=== PATIENT | male | born 1975 | race Caucasian/White ===

== ENCOUNTER 2016-10-27 16:28 | Inpatient (IN) | payer BC ==
[2016-10-27] MEDS ORDERED: SODIUM CHLORIDE 1,000 ML IV ONE (17:22)
--- NOTE | 2016-10-27 17:31 | PDOC ---
History of Present Illness - General History Source: Patient Exam Limitations: No Limitations - History of Present Illness Initial Comments: 10/27/16 17:55 Patient is a 40 year old male with no significant pain who presents to the ED sent from Dr. Tillman's office with RLQ abdominal pain and fever. Patient states that the RLQ pain is only present with movements and pressure over the area. He states when he is still there is no pain. Patient states that he initially developed mild RLQ pain on Sunday. He notes that on Sunday he woke up with fever and nasal congestion nad uri like symtoms. He was seen at an urgent care on sunday had blood work and a renal US that did not visualize hydronephrosis or stones, and was given Cipro for UTI due to some hematuria. Patient states that on Sunday he developed a cough in addition to the other symptoms. Patient saw Dr. Tillman today that has concerns for appendicitis and requested a CT for the patient. He reports intermittent mild nausea. Denies any pain unless people are poking him. He denies any vomiting, diarrhea or constipation. He denies any SOB or cp. He denies dysuria, hematuria, frequency or urgency. <Carley Allen - Last Filed: 10/27/16 17:55> <Rakesh Seaman - Last Filed: 10/28/16 19:28> - General Chief Complaint: Pain, Acute Stated Complaint: SIDE PAIN Time Seen by Provider: 10/27/16 17:19 Past History <Carley Allen - Last Filed: 10/27/16 17:55> - Past Medical History Other medical history: PATIENT DENIES MEDICAL PROBLEMS - Psycho/Social/Smoking Cessation Hx Suicidal Ideation: No Smoking History: Never smoked Hx Alcohol Use: Yes (OCCASIONALLY) Drug/Substance Use Hx: No <Rakesh Seaman - Last Filed: 10/28/16 19:28> - Past Medical History Allergies/Adverse Reactions: Allergies Allergy/AdvReac Type Severity Reaction Status Date / Time No Known Allergies Allergy Verified 10/27/16 16:33 Home Medications: Ambulatory Orders NK [No Known Home Medication] 10/27/16 Review of Systems - Review of Systems Able to Perform ROS?: Yes Comments:: 10/27/16 17:56 CONSTITUTIONAL: No reported: Fever, Chills, Diaphoresis, Generalized Weakness, Malaise, Loss of Appetite HEENT: No reported: Rhinorrhea, Nasal Congestion, Throat Pain, Throat Swelling, Difficulty Swallowing, Mouth Swelling, Ear Pain, Eye Pain, Visual Changes CARDIOVASCULAR: No reported: Chest Pain, Syncope, Palpitations, Irregular Heart Rate, Lightheadedness, Peripheral Edema RESPIRATORY: No reported: Cough, Shortness of Breath, SOB with Exertion, Orthopnea, Wheezing , Stridor, Hemoptysis GASTROINTESTINAL: Reported: RLQ abdominal pain, nausea. No reported: Abdominal Distension, Vomiting, Diarrhea, Constipation, Melena, Hematochezia GENITOURINARY: No reported: Dysuria, Frequency, Urgency, Hesitancy, Flank Pain, Genital Pain MUSCULOSKELETAL: No reported: Myalgia, Arthralgia, Joint Swelling, Back pain, Neck Pain SKIN: No reported: Rash, Itching, Pallor HEMEATOLOGIC/IMMUNOLOGIC: No reported: Easy Bleeding, Easy Bruising, Lymphadenopathy, Frequent infections ENDOCRINE: No reported: Unexplained Weight Gain, Unexplained Weight Loss, Heat Intolerance , Cold Intolerance NEUROLOGIC: No reported: Headache, Focal Weakness, Paresthesias, Vertigo, Lightheadedness, Unsteady Gait, Seizure, Mental Status Changes, Incontinence PSYCHIATRIC: No reported: Anxiety, Depression <Carley Allen - Last Filed: 10/27/16 17:55> *Physical Exam - Vital Signs Last Vital Signs Temp Pulse Resp BP Pulse Ox 98.0 F 120 H 18 124/88 96 10/27/16 16:31 10/27/16 16:31 10/27/16 16:31 10/27/16 16:31 10/27/16 16:31 - Physical Exam Comments: 10/27/16 17:56 GENERAL: The patient is awake, alert, and fully oriented, Nontoxic - in no acute distress. HEAD: Normocephalic, atraumatic. EYES: extraocular movements intact, sclera anicteric, conjunctiva clear. ENT: Normal voice, Moist mucous membranes. NECK: Normal range of motion, supple LUNGS: Breath sounds equal, clear to auscultation bilaterally. No wheezes, no rhonchi, no rales. HEART: Regular rate and rhythm, without murmur, rub or gallop. ABDOMEN: (+)RLQ tenderness. (+)volutnary guarding. Soft, normoactive bowel sounds. no rebound. No CVA tenderness EXTREMITIES: Normal range of motion, no edema. No clubbing or cyanosis. No cords , erythema, or tenderness. NEUROLOGICAL: No facial assymetry, Normal speech, PSYCH: Normal mood, normal affect. SKIN: Warm, Dry, normal turgor <Carley Allen - Last Filed: 10/27/16 17:55> - Vital Signs Last Vital Signs Temp Pulse Resp BP Pulse Ox 98.0 F 120 H 18 124/88 96 10/27/16 16:31 10/27/16 16:31 10/27/16 16:31 10/27/16 16:31 10/27/16 16:31 <Rakesh Seaman - Last Filed: 10/28/16 19:28> Heart Score/ECG Review - ECG Impressions Comment:: 10/27/16 23:08 Twelve-lead EKG was performed and reviewed by me. There is normal sinus rhythm with a normal rate. Rate of 85 The axis is normal. The intervals are normal. There is normal R wave progression There are no ST or T wave abnormalities. <Rakesh Seaman - Last Filed: 10/28/16 19:28> ED Treatment Course - LABORATORY CBC & Chemistry Diagram: 10/28/16 07:45 10/28/16 07:45 <Rakesh Seaman - Last Filed: 10/28/16 19:28> Medical Decision Making - Medical Decision Making 10/27/16 17:35 40y M with no pmhx presents with complaint of RLQ pain, sent by PMD for evalution. pain x 5 days w/o associated n/v, but has been having fevers as wellas URI sypmtoms. on exam pt is well appearing but vitals noted for HR of 120. pt also has exquisite RLQ tenderness suspect possible appendicitis will give fluids for fluid resusitation will obtain CT abdomen will reasses A portion of this note was documented by scribe services under my direction. I have reviewed the details of the note, within reason, and agree with the documentation with the following case summary and management plan written by me 10/27/16 20:[address] noted for acute appendicitis with an abscess pt written for abx will admi tto the hospitalist service (covering for Dr. Ha) will admit for further management will notify surgery. <Rakesh Seaman - Last Filed: 10/28/16 19:28> *DC/Admit/Observation/Transfer - Attestations Scribe Attestion: 10/27/16 17:56 Documentation prepared by RAJINDER Mccall, acting as medical scheduler for Rakesh Seaman MD. <Carley Allen - Last Filed: 10/27/16 17:55> - Discharge Dispostion Admit: Yes <Rakesh Seaman - Last Filed: 10/28/16 19:28> Diagnosis at time of Disposition: Acute appendicitis with appendiceal abscess - Referrals
[2016-10-27 18:40] LABS: BASOPHIL 0.3 % (0-2.0); EOSINOPHIL 1.6 % (0-4.5); MCH 29.2 pg (25.7-33.7); MCHC 32.4 g/dl (32.0-35.9); MEAN CELL VOLUME 90.2 fl (80-96); MEAN PLT VOLUME 9.8 fl (7.5-11.1); NEUTROPHILS 76.9 % (42.8-82.8); PLATELET COUNT 304 K/MM3 (134-434); RDW 12.8 % (11.9-15.9); WHITE BLOOD COUNT 14.2 K/mm3 (4.0-10.0)
[2016-10-27 18:48] LABS: URINE APPEARANCE CLEAR; URINE BILIRUBIN NEGATIVE (NEGATIVE); URINE BLOOD 1+ (NEGATIVE); URINE COLOR DK YELLOW; URINE GLUCOSE (UA) NEGATIVE (NEGATIVE); URINE KETONE TRACE (NEGATIVE); URINE LEUK ESTERASE NEGATIVE (NEGATIVE); URINE NITRITE NEGATIVE (NEGATIVE); URINE PROTEIN 1+ (NEGATIVE); URINE UROBILINOGEN NEGATIVE E.U./dl (0.2-1.0)
[2016-10-27 18:51] LABS: URINE MUCUS MANY; URINE RBC 7 /hpf (0-3); URINE WBC 1 /hpf (3-5)
[2016-10-27 18:52] LABS: INR 1.27 (0.82-1.09)
[2016-10-27 19:02] LABS: ANION GAP 8 (8-16); CALCIUM 9.5 mg/dL (8.5-10.1); CO2 29 mmol/L (21-32); COCKROFT - GAULT 87.62; CREATININE 1.1 mg/dL (0.7-1.3); GLUCOSE,RANDOM 85 mg/dL (74-106); SGOT/AST 176 U/L (15-37); TOT PROT 8.2 g/dl (6.4-8.2)
[2016-10-27 19:16] LABS: ALK PHOS 155 U/L (45-117); BILIRUBIN,TOTAL 0.9 mg/dL (0.2-1.0); SGPT/ALT 390 U/L (12-78)
[2016-10-27] MEDS ORDERED: ACETAMINOPHEN 1000 MG/100 ML VIAL (NON FORMULARY) IVPB ONE (20:02)
[2016-10-27] MEDS ORDERED: ACETAMINOPHEN INJECTION 100 ML IVPB ONE (20:08)
[2016-10-27] MEDS ORDERED: METRONIDAZOLE 500 MG PREMIXED 100 ML IVPB ONE ×2 (20:32→20:37)
[2016-10-27] MEDS ORDERED: LEVOFLOXACIN 750 MG IVPB 150 ML IVPB ONE ×2 (20:32→20:37)
--- NOTE | 2016-10-27 22:05 | PN ---
<Gaby Estes - Last Filed: 10/27/16 21:55> Teaching Attending Note Name of Resident: Jodi Gilmore ATTENDING PHYSICIAN STATEMENT ASSESSMENT AND PLAN: RLQ Abdominal pain, Acute appendicitis NPO IVF NS @150cc/h Morphine 2mg q6h prn zofran prn Surgery consult called by ED Elevated LFTs r/o hepatitis Hepatitis panel <Doretha Esquivel - Last Filed: 10/27/16 22:35> Teaching Attending Note ATTENDING PHYSICIAN STATEMENT I saw and evaluated the patient. I reviewed the resident's note and discussed the case with the resident. I agree with the resident's findings and plan as documented. SUBJECTIVE: 40 yo M presents from Dr. Pacheco office with RLQ pain and fever for 6 days. Patient reports his RLQ is tender to palpation. He was seen at an urgent care on sunday had blood work and a renal US that did not visualize hydronephrosis or stones, and was given Cipro for UTI due to some possible hematuria. Patient notes he developed an associated cough 4 days ago. Patient reports Dr. Puga sent him here for CT scan today as for concerns of appendicitis. Patient reports his fever was 100.9 degrees. Patient denies N/V/ D. PMHx: Denies PSHx: Denies Social Hx: occassional ETOH Family Hx: Mother had colon cancer at 60 yo. OBJECTIVE: Last Vital Signs Temp Pulse Resp BP Pulse Ox 100.3 F H 96 H 17 128/80 96 10/27/16 19:48 10/27/16 19:48 10/27/16 19:48 10/27/16 19:48 10/27/16 16:31 GENERAL: Awake, alert, and fully oriented, in no acute distress HEENT: Atraumatic. PERRLA, EOMI. Moist mucosa. No JVD LUNGS: No distress, speaks full sentences, clear to auscultation bilaterally HEART: Regular rate and rhythm, normal S1 and S2, no murmurs, rubs or gallops, peripheral pulses normal and equal bilaterally. ABDOMEN: Soft, RLQ tenderness, normoactive bowel sounds. No guarding, no rebound. No masses EXTREMITIES: Normal inspection, Normal range of motion, no edema. No clubbing or Cyanosis. NEUROLOGICAL: Cranial nerves II through XII grossly intact. Normal speech, gait not assessed, no focal sensorimotor deficits SKIN: Warm, Dry, normal turgor, no rashes or lesions noted. CBCD WBC 14.2 K/mm3 (4.0-10.0) H 10/27/16 18:00 RBC 5.09 M/mm3 (4.00-5.60) 10/27/16 18:00 Hgb 14.9 GM/dL (11.7-16.9) 10/27/16 18:00 Hct 46.0 % (35.4-49) 10/27/16 18:00 MCV 90.2 fl (80-96) 10/27/16 18:00 MCHC 32.4 g/dl (32.0-35.9) 10/27/16 18:00 RDW 12.8 % (11.9-15.9) 10/27/16 18:00 Plt Count 304 K/MM3 (134-434) 10/27/16 18:00 MPV 9.8 fl (7.5-11.1) 10/27/16 18:00 CMP Sodium 137 mmol/L (136-145) 10/27/16 18:00 Potassium 4.1 mmol/L (3.5-5.1) 10/27/16 18:00 Chloride 100 mmol/L (98-107) 10/27/16 18:00 Carbon Dioxide 29 mmol/L (21-32) 10/27/16 18:00 Anion Gap 8 (8-16) 10/27/16 18:00 BUN 9 mg/dL (7-18) 10/27/16 18:00 Creatinine 1.1 mg/dL (0.7-1.3) 10/27/16 18:00 Creat Clearance w eGFR > 60 (>60) 10/27/16 18:00 Calcium 9.5 mg/dL (8.5-10.1) 10/27/16 18:00 Total Bilirubin 0.9 mg/dL (0.2-1.0) 10/27/16 18:00 AST 176 U/L (15-37) H 10/27/16 18:00 ALT 390 U/L (12-78) H 10/27/16 18:00 Alkaline Phosphatase 155 U/L (45-117) H 10/27/16 18:00 Total Protein 8.2 g/dl (6.4-8.2) 10/27/16 18:00 Albumin 4.0 g/dl (3.4-5.0) 10/27/16 18:00 ASSESSMENT AND PLAN: 1.) Acute appendicitis -NPO -IVF -Levaquin -Flagyl -Hepatitis panel -Surgical consult Documentation is prepared by Doretha Esquivel acting as medical logistics specialist for Gaby Estes M.D.
[2016-10-27] MEDS: SODIUM CHLORIDE 1,000 ML IV SCH (22:24)
[2016-10-27] MEDS ORDERED: morphine CARPU-JECT 2 MG/1 ML DISP.SYRIN IVPUSH PRN (22:49)
--- NOTE | 2016-10-27 22:51 | HP ---
CHIEF COMPLAINT: RLQ Pain PCP: Dr. Tillman's HISTORY OF PRESENT ILLNESS: 32 year old male with no significant past medical history, presents to the emergency room complaining of RLQ pain for on week. Patient was starting to feel ill last Sunday at home, with sharp, non radiating RLQ pain. This was accompanied with low grade fever. Patient denies chills, n. v,changes in bowel or bladder habits. Denies any aggregating or alleviating factors. Patient then went to Urgent care to get evaluated. He states urine analysis was positive blood, so a kidney ultrasound was done to rule out stones, which was negative for acute pathology. Patient then went to his primary care for which he was sent here for suspected appendicitis. Routine lab work was a slo evident for elevated liver enzymes. Patient claims he had a liver biopsy in the past that was negative. Denies hepatitis, use of needles. He states he drinks 3 glasses of wine about three times per week. ER course was notable for: (1)wbc count 14; (2)elevated liver enzymes (3)abdomen CT acute appendicitis Recent Travel: no PAST MEDICAL HISTORY: none PAST SURGICAL HISTORY: none Social History: Smoking:no Alcohol:3 glasses of wine 3x per week Drugs: no Family History: Allergies No Known Allergies Allergy (Verified 10/27/16 16:33) HOME MEDICATIONS: Home Medications Medication Instructions Recorded NK [No Known Home Medication] 10/27/16 REVIEW OF SYSTEMS CONSTITUTIONAL: Positive: fever Absent: chills, diaphoresis, generalized weakness, malaise, loss of appetite, weight change HEENT: Absent: rhinorrhea, nasal congestion, throat pain, throat swelling, difficulty swallowing, mouth swelling, ear pain, eye pain, visual changes CARDIOVASCULAR: Absent: chest pain, syncope, palpitations, irregular heart rate, lightheadedness , peripheral edema RESPIRATORY: Absent: cough, shortness of breath, dyspnea with exertion, orthopnea, wheezing, stridor, hemoptysis GASTROINTESTINAL: Positive: abdominal pain, RLQ Absent: abdominal distension, nausea, vomiting, diarrhea, constipation, melena , hematochezia GENITOURINARY: Absent: dysuria, frequency, urgency, hesitancy, hematuria, flank pain, genital pain MUSCULOSKELETAL: Absent: myalgia, arthralgia, joint swelling, back pain, neck pain SKIN: Absent: rash, itching, pallor HEMATOLOGIC/IMMUNOLOGIC: Absent: easy bleeding, easy bruising, lymphadenopathy, frequent infections ENDOCRINE: Absent: unexplained weight gain, unexplained weight loss, heat intolerance, cold intolerance NEUROLOGIC: Absent: headache, focal weakness or paresthesias, dizziness, unsteady gait, seizure, mental status changes, bladder or bowel incontinence PSYCHIATRIC: Absent: anxiety, depression, suicidal or homicidal ideation, hallucinations. PHYSICAL EXAMINATION Vital Signs - 24 hr 10/27/16 10/27/16 10/27/16 16:31 19:48 22:33 Temperature 98.0 F 100.3 F H 99 F Pulse Rate 120 H Pulse Rate [ 96 H 80 Radial] Respiratory 18 17 Rate Blood Pressure 124/88 Blood Pressure 128/80 118/72 [Arm] O2 Sat by Pulse 96 97 Oximetry (%) GENERAL: Awake, alert, and fully oriented, in no acute distress. HEAD: Normal with no signs of trauma. EYES: Pupils equal, round and reactive to light, extraocular movements intact, sclera anicteric, conjunctiva clear. No lid lag. EARS, NOSE, THROAT: Ears normal, nares patent, oropharynx clear without exudates. Moist mucous membranes. NECK: Normal range of motion, supple without lymphadenopathy, JVD, or masses. LUNGS: Breath sounds equal, clear to auscultation bilaterally. No wheezes, and no crackles. No accessory muscle use. HEART: Regular rate and rhythm, normal S1 and S2 without murmur, rub or gallop. ABDOMEN: Soft,RLQ tenderness, not distended, normoactive bowel sounds, no guarding, no rebound, no masses. No hepatomegaly or splenomegaly. MUSCULOSKELETAL: Normal range of motion at all joints. No bony deformities or tenderness. No CVA tenderness. UPPER EXTREMITIES: 2+ pulses, warm, well-perfused. No cyanosis. No clubbing. No peripheral edema. LOWER EXTREMITIES: 2+ pulses, warm, well-perfused. No calf tenderness. No peripheral edema. NEUROLOGICAL: Cranial nerves II-XII intact. Normal speech. Normal gait. PSYCHIATRIC: Cooperative. Good eye contact. Appropriate mood and affect. SKIN: Warm, dry, normal turgor, no rashes or lesions noted, normal capillary refill. CBC, BMP 10/27/16 18:00 10/27/16 18:[address]: Acute appendicitis is identified with a probable 1.3 x 0.5 cm periappendiceal abscess. Periappendiceal edema and fluid is also noted. A small calcified intraluminal appendicolith is visualized. A small amount of free intraperitoneal fluid is seen within the rectovesical space. ASSESSMENT/PLAN: 40 year old male with out PMHX presents to ER with RLQ pain admitted for acute appendicitis #acute appendicitis with abscess: -NPO, IVF, pain control with morphine 2mg IVP q6h prn -flagyl 500mg IVPB q6h; levaquin IV 500mg qd -surgery consult #transaminitis -patient does drink although AST not greater than ALT; non IVDA; -get hapatitis A, B, C -gather old records from primary regarding previous work up/previous liver biopsy -trend ALT/AST -liver US #hematuria -RBC + on UA -recent renal US negative for acute pathology FEN: Fluids: 125ml/hr NS Electrolytes: wnl Diet: NPO VTE prophylaxis: ambulates; eval for surgery Disposition: admitted to med surg; surgery eval Problem List - Problem (1) Acute appendicitis with appendiceal abscess Code(s): K35.3 - ACUTE APPENDICITIS WITH LOCALIZED PERITONITIS (2) Transaminitis Code(s): R74.0 - NONSPEC ELEV OF LEVELS OF TRANSAMNS & LACTIC ACID DEHYDRGNSE (3) Hematuria Code(s): R31.9 - HEMATURIA, UNSPECIFIED Visit type - Emergency Visit Emergency Visit: Yes ED Registration Date: 10/27/16 Care time: The patient presented to the Emergency Department on the above date and was hospitalized for further evaluation of their emergent condition. - New Patient This patient is new to me today: Yes Date on this admission: 10/28/16 - Critical Care Critical Care patient: No
--- NOTE | 2016-10-27 23:37 | CONSULT ---
Consult Consult Specialty:: General Surgery Reason for Consultation:: Abdominal pain, acute appendicitis with abscess. - History of Present Illness Chief Complaint: Abdominal pain for 5 days, exacerbated today. History of Present Illness: C/O pain in right lower quadrant of abdomen for the past 5 days, has been on antibiotic with no relief. - History Source History Provided By: Patient Limitations to Obtaining History: No Limitations - Past Medical History Gastrointestinal: Yes: Other (He is known to have elevated liver enzymes and is followed by for the past 3-4 years.) Hepatobiliary: Yes: Other (Elevated liver enzymes for 3-4 years.) - Alcohol/Substance Use Hx Alcohol Use: Yes (OCCASIONALLY) - Smoking History Smoking history: Never smoked Home Medications - Allergies Allergies/Adverse Reactions: Allergies Allergy/AdvReac Type Severity Reaction Status Date / Time No Known Allergies Allergy Verified 10/27/16 16:33 - Home Medications Home Medications: Ambulatory Orders NK [No Known Home Medication] 10/27/16 Physical Exam Vital Signs: Vital Signs Temperature 99 F 10/27/16 22:33 Pulse Rate 80 10/27/16 22:33 Respiratory Rate 17 10/27/16 22:33 Blood Pressure 118/72 10/27/16 22:33 O2 Sat by Pulse Oximetry (%) 97 10/27/16 22:33 Gastrointestinal: Yes: Tenderness (tendr in right lower quadrant of abdomen) Imaging - Results Cat Scan: Report Reviewed, Image Reviewed (CT scan suggestive of a retrocecal appendix with appendicitis with abscess.) Ultrasound: Report Reviewed Problem List - Problems (1) Acute appendicitis with appendiceal abscess Code(s): K35.3 - ACUTE APPENDICITIS WITH LOCALIZED PERITONITIS Assessment/Plan Acute appendicitis with abscess. Antibiotics, IV fluids, appendectomy. Patient and his family have been explained of the management of appendicitis, laparoscopic , possible open. Alternatively treatment with antibiotics. He has already had symptoms for 5-6 days. Will obtain g.i. consult postop.
[2016-10-28 00:46] VITALS: BMI 27.1
[2016-10-28] MEDS: METRONIDAZOLE 500 MG PREMIXED 100 ML IVPB SCH ×2 (03:12→09:00)
[2016-10-28] MEDS: SODIUM CHLORIDE 1,000 ML IV SCH (03:17)
[2016-10-28 08:19] LABS: BASOPHIL 0.4 % (0-2.0); EOSINOPHIL 1.9 % (0-4.5); MCH 30.7 pg (25.7-33.7); MCHC 33.9 g/dl (32.0-35.9); MEAN CELL VOLUME 90.4 fl (80-96); MEAN PLT VOLUME 9.1 fl (7.5-11.1); NEUTROPHILS 75.2 % (42.8-82.8); PLATELET COUNT 267 K/MM3 (134-434); RDW 12.7 % (11.9-15.9); WHITE BLOOD COUNT 10.5 K/mm3 (4.0-10.0)
[2016-10-28 09:10] LABS: ALBUMIN 3.5 g/dl (3.4-5.0); ALK PHOS 136 U/L (45-117); ANION GAP 12 (8-16); BILIRUBIN,TOTAL 0.9 mg/dL (0.2-1.0); CALCIUM 8.8 mg/dL (8.5-10.1); CO2 25 mmol/L (21-32); COCKROFT - GAULT 109.41; CREATININE 0.9 mg/dL (0.7-1.3); GLUCOSE,RANDOM 79 mg/dL (74-106); SGOT/AST 97 U/L (15-37); SGPT/ALT 282 U/L (12-78); TOT PROT 7.3 g/dl (6.4-8.2)
[2016-10-28 09:36] LABS: INR 1.43 (0.82-1.09); PROTHROMBIN TIME (PATIENT) 15.9 SEC (9.98-11.88)
[2016-10-28] MEDS ORDERED: LEVOFLOXACIN 750 MG IVPB 150 ML IVPB SCH (10:00)
--- NOTE | 2016-10-28 10:05 | HP ---
History & Physical Update - History History: No Change - Physical Physical: No Change - Assessment Assessment: No Change - Plan Plan: No Change
[2016-10-28] MEDS ORDERED: ONDANSETRON 4 MG/2 ML VIAL IVPUSH PRN ×4 (10:07→14:22)
[2016-10-28] MEDS ORDERED: PROMETHAZINE HCL 25 MG/1 ML VIAL IVPUSH PRN (10:13)
[2016-10-28] MEDS ORDERED: LACTATED RINGERS SOLUTION 1,000 ML IV SCH (10:15)
[2016-10-28] MEDS ORDERED: MIDAZOLAM HCL 2 MG/2 ML SINGLE DOSE VIAL ONE (10:19)
[2016-10-28] MEDS ORDERED: PROPOFOL 20 ML ONE ×3 (10:19→10:20)
[2016-10-28] MEDS ORDERED: ROCURONIUM BROMIDE 50 MG/5 ML VIAL ONE ×2 (10:19→11:51)
[2016-10-28] MEDS ORDERED: BUPIVACAINE HCL/PF 0.5% (5MG/ML) 10 ML VIAL ONE (10:36)
[2016-10-28] MEDS ORDERED: LEVOFLOXACIN 500 MG PREMIX BAG IVPB ONE (10:38)
[2016-10-28] MEDS ORDERED: LIDOCAINE HCL/PF 2% SDV 5ML VIAL ONE (10:46)
[2016-10-28] MEDS ORDERED: DEXAMETHASONE SOD PHOSPHATE 4 MG/1 ML VIAL ONE ×2 (10:56→14:17)
[2016-10-28] MEDS ORDERED: ONDANSETRON 4 MG/2 ML VIAL ONE ×2 (10:56→13:21)
[2016-10-28] MEDS ORDERED: KETOROLAC TROMETHAMINE 30 MG/1 ML VIAL ONE (12:30)
[2016-10-28] MEDS ORDERED: GLYCOPYRROLATE 0.2 MG/1 ML VIAL ONE (12:30)
[2016-10-28] MEDS ORDERED: NEOSTIGMINE METHYLSULFATE 0.5 MG/ML - 10 ML MDV ONE (12:31)
--- NOTE | 2016-10-28 13:03 | OP ---
Operative Note - Note: Operative Date: 10/28/16 Pre-Operative Diagnosis: Acute appendicitis , with abscess Operation: Laparoscopic procedure , converted to open appendectomy. Findings: Acute appendicitis with abscess. Retrocecal in location , extremely indurated tissues . Long retrocecal appendix, unable to mobilise the distal half of the appendix laparoscopically. Converted to open , McBurney incision. Surgeon: Ana Hoffman Anesthesiologist/PLANT TAXONOMIST: Simba Leary Anesthesia: General Specimens Removed: Appendix Estimated Blood Loss (mls): 25 Operative Report Dictated: Yes
[2016-10-28] MEDS ORDERED: DEXAMETHASONE SOD PHOSPHATE 4 MG/1 ML VIAL IVPUSH PRN ×2 (13:12→14:22)
[2016-10-28] MEDS ORDERED: PROMETHAZINE HCL 25 MG/1 ML VIAL IVPB PRN (13:12)
--- NOTE | 2016-10-28 13:19 | CONSULT ---
Consult Consult Specialty:: infectious diseases Referred by:: Reason for Consultation:: Appendicitis - History of Present Illness Chief Complaint: abd pain rlq History of Present Illness: 32 year old male with no significant past medical history, admitted because of rlq pain patient was worked up and found to ahve appendicitis patient was operated lap was converted to open because of the position of appendix d/w the surgeon - History Source History Provided By: Patient, Medical Record Limitations to Obtaining History: Clinical Condition - Past Medical History Gastrointestinal: Yes: Other (He is known to have elevated liver enzymes and is followed by for the past 3-4 years.) Hepatobiliary: Yes: Other (Elevated liver enzymes for 3-4 years.) - Alcohol/Substance Use Hx Alcohol Use: Yes (OCCASIONALLY) - Smoking History Smoking history: Never smoked Home Medications - Allergies Allergies/Adverse Reactions: Allergies Allergy/AdvReac Type Severity Reaction Status Date / Time No Known Allergies Allergy Verified 10/27/16 16:33 - Home Medications Home Medications: Ambulatory Orders NK [No Known Home Medication] 10/27/16 Review of Systems - Review of Systems Constitutional: reports: Fever Eyes: reports: No Symptoms HENT: reports: No Symptoms Neck: reports: No Symptoms Cardiovascular: reports: No Symptoms Respiratory: reports: No Symptoms Gastrointestinal: reports: Abdominal Pain (rlq) Genitourinary: reports: No Symptoms Musculoskeletal: reports: No Symptoms Neurological: reports: No Symptoms Endocrine: reports: No Symptoms Physical Exam Vital Signs: Vital Signs Temperature 99.0 F 10/28/16 09:00 Pulse Rate 80 10/28/16 09:00 Respiratory Rate 18 10/28/16 09:00 Blood Pressure 127/73 10/28/16 09:00 O2 Sat by Pulse Oximetry (%) 97 10/28/16 09:00 Constitutional: Yes: No Distress, Calm, Other (post op) Neck: Yes: Supple, Trachea Midline Cardiovascular: Yes: Regular Rate and Rhythm Respiratory: Yes: Regular, CTA Bilaterally Gastrointestinal: Yes: Normal Bowel Sounds, Soft Musculoskeletal: Yes: WNL Extremities: Yes: WNL Wound/Incision: Yes: Dressing Dry and Intact Neurological: Yes: Alert, Oriented Psychiatric: Yes: Alert, Oriented Labs: CBC, BMP 10/28/16 07:45 10/28/16 07:45 Imaging - Results Cat Scan: Report Reviewed, Image Reviewed Ultrasound: Report Reviewed, Image Reviewed Assessment/Plan ac appendicits abd pain plan will start patient on abx rest as per primary team/surgery
[2016-10-28] MEDS ORDERED: PIPERACILLIN/TAZOB 3.375 GM 50 ML IVPB SCH (13:30)
[2016-10-28] MEDS ORDERED: HYDROmorphone *PCA* 10MG/50ML DISP.SYRIN PCA ONE (13:39)
[2016-10-28] MEDS: HYDROmorphone *PCA* 10MG/50ML DISP.SYRIN PCA SCH ×2 (13:45→14:56)
--- NOTE | 2016-10-28 13:56 | PN ---
Progress Note (short form) - Note Progress Note: s/p surgery. lethargic Current Medications Generic Name Dose Route Start Last Admin Trade Name Freq PRN Reason Stop Dose Admin Dexamethasone Sodium Phosphate 4 mg 10/28/16 13:12 Decadron Injection - IVPUSH ONCE PRN NAUSEA AND/OR VOMITING Diphenhydramine HCl 12.5 mg 10/28/16 13:12 Benadryl Injection - IVPUSH ONCE PRN FOR ITCHING Hydromorphone HCl 10 mg 10/28/16 13:15 Dilaudid Pressure Vessel Inspector - PAINTER BOTTOM 11/04/16 13:12 PAINTER BOTTOM CARMELO Protocol Sodium Chloride 1,000 mls @ 125 mls/hr 10/27/16 22:00 10/28/16 03:17 Normal Saline - IV 125 mls/hr ASDIR CARMELO Administration Metronidazole 100 mls @ 100 mls/hr 10/28/16 03:00 10/28/16 09:00 Flagyl 500mg Premixed Ivpb - IVPB 100 mls/hr Q6H-IV CARMELO Administration Levofloxacin 150 mls @ 150 mls/hr 10/28/16 10:00 Levaquin 750 Mg Premixed Ivpb - IVPB DAILY CARMELO Lactated Ringer's 1,000 mls @ 125 mls/hr 10/28/16 10:15 Lactated Ringers Solution IV ASDIR CARMELO Piperacillin Sod/Tazobactam Sod 50 mls @ 100 mls/hr 10/28/16 13:30 Zosyn 3.375gm Ivpb (Pre-Docked) IVPB Q8H-IV CARMELO Protocol Ondansetron HCl 4 mg 10/28/16 10:07 Zofran Injection IVPUSH 10/28/16 16:08 Q6H PRN NAUSEA AND/OR VOMITING Ondansetron HCl 4 mg 10/28/16 13:18 Zofran Injection IVPUSH 10/29/16 01:19 Q4H PRN NAUSEA AND/OR VOMITING Promethazine HCl 12.5 mg 10/28/16 13:12 Phenergan Injection - IVPB Q6H PRN NAUSEA AND/OR VOMITING Last Vital Signs Temp Pulse Resp BP Pulse Ox 99.0 F 80 18 127/73 97 10/28/16 09:00 10/28/16 09:00 10/28/16 09:00 10/28/16 09:00 10/28/16 09:00 General NAD CV S1 S2 RRR no murmur/rub/gallop Lungs CTA B/L no wheezing/rales/rhonchi Abdomen +distention +diffuse tender gauze over surgical site Extremities no pedal edema CBCD WBC 10.5 K/mm3 (4.0-10.0) H 10/28/16 07:45 RBC 4.69 M/mm3 (4.00-5.60) 10/28/16 07:45 Hgb 14.4 GM/dL (11.7-16.9) 10/28/16 07:45 Hct 42.4 % (35.4-49) 10/28/16 07:45 MCV 90.4 fl (80-96) 10/28/16 07:45 MCHC 33.9 g/dl (32.0-35.9) 10/28/16 07:45 RDW 12.7 % (11.9-15.9) 10/28/16 07:45 Plt Count 267 K/MM3 (134-434) 10/28/16 07:45 MPV 9.1 fl (7.5-11.1) 10/28/16 07:45 CMP Sodium 140 mmol/L (136-145) 10/28/16 07:45 Potassium 3.9 mmol/L (3.5-5.1) 10/28/16 07:45 Chloride 103 mmol/L (98-107) 10/28/16 07:45 Carbon Dioxide 25 mmol/L (21-32) 10/28/16 07:45 Anion Gap 12 (8-16) 10/28/16 07:45 BUN 9 mg/dL (7-18) 10/28/16 07:45 Creatinine 0.9 mg/dL (0.7-1.3) 10/28/16 07:45 Creat Clearance w eGFR > 60 (>60) 10/28/16 07:45 Calcium 8.8 mg/dL (8.5-10.1) 10/28/16 07:45 Total Bilirubin 0.9 mg/dL (0.2-1.0) 10/28/16 07:45 AST 97 U/L (15-37) H D 10/28/16 07:45 ALT 282 U/L (12-78) H D 10/28/16 07:45 Alkaline Phosphatase 136 U/L (45-117) H 10/28/16 07:45 Total Protein 7.3 g/dl (6.4-8.2) 10/28/16 07:45 Albumin 3.5 g/dl (3.4-5.0) 10/28/16 07:45 A/P 40yo M with no PMH presented to the ER with RLQ pain and found to have acute appendicitis with abscess 1. Acute Appendicitis with abscess- s/p open appendectomy 10/28. started on Flagyl and Levaquin day 1. ID consulted. IVF, Pain and nausea control. 2. Transaminitis-hx of transaminitis. s/p liver bx which showed fatty infiltration. admits to moderate drinking (3 drinks per sitting 3x/week) has been monitoring with PMD for 3years now. supposed to be on fat controlled diet. u/s shows fatty infiltration. will need to f/u with PMD. hepatitis panel pending 3. Microscopic hematuria- can be due to dehydration or infection. u/s shows no acute pathology in the kidnyes. repeat 4. DVT ppx- start lovenox tomorrow Visit type - Emergency Visit Emergency Visit: Yes ED Registration Date: 10/27/16 Care time: The patient presented to the Emergency Department on the above date and was hospitalized for further evaluation of their emergent condition. - New Patient This patient is new to me today: Yes Date on this admission: 10/28/16 - Critical Care Critical Care patient: No - Discharge Referral Referred to [facility] Med [facility] No
[2016-10-28] MEDS ORDERED: PIPERACILLIN/TAZOB 3.375 GM/50 ML PRE-DOCKED IVPB ONE (14:00)
[2016-10-28] MEDS ORDERED: HYDROmorphone *PCA* 10MG/50ML DISP.SYRIN PCA SCH (14:22)
[2016-10-28] MEDS: LACTATED RINGERS SOLUTION 1,000 ML IV SCH ×2 (14:55→22:34)
--- NOTE | 2016-10-28 16:24 | OP ---
DATE OF OPERATION: 10/28/2016 PREOPERATIVE DIAGNOSIS: Acute retrocecal appendicitis with abscess. POSTOPERATIVE DIAGNOSIS: Acute retrocecal appendicitis with abscess, anterior inflammation, localized peritonitis. OPERATIVE PROCEDURE: Laparoscopic procedure converted to open appendectomy. SURGEON: Derrek Hoffman MD CUSTOMS OPENER VERIFIER PACKER: None ANESTHESIA: General anesthesia. ANESTHESIOLOGIST: Simba Leary MD OPERATIVE DESCRIPTION: This 40-year-old man who was brought in for laparoscopic appendectomy, possible open. Consent was obtained. Risks, benefits, and complications were explained to the patient and the family including conversion to open. The patient had been on antibiotics. Patient brought to the operating room. Given 1 g of ceftriaxone. Casillas catheter was placed in the bladder and removed right after surgery. Anesthesia was administered. The abdomen was painted and draped. Time-out was called. An incision was made in the infraumbilical portion of the umbilicus. It was deepened through the skin and subcutaneous tissue and the linea alba. Peritoneum was incised. A 10- to 12-mm laparoscopic trocar was introduced into the pelvic cavity. The abdomen was insufflated with carbon dioxide at 6 L/ min with maximum intra-abdominal pressure of 15 mmHg. A 5-mm camera was introduced into the abdominal cavity. Under direct vision, another 5-mm trocar was inserted in the midline suprapubic area. This was noted entering the abdominal cavity under direct vision of the camera. A 3rd trocar, another 5 mm, was inserted in the right upper quadrant of the abdomen. The cecum was visualized, and the base of the cecum was identified. The terminal ileum was normal. The appendix was found anteriorly on the cecum and then going posteriorly in a retrocecal position. Attempt was made to mobilize the cecum by incising the lateral peritoneal reflection. The appendix was very indurated and could not be from the posterior surface of the ascending colon and the cecum. However, the base of the appendix was identified. This was carefully by blunt dissection, from the cecum. When this was done, Endo DALY was introduced through the base of the appendix, and this was fired across the base. The stump of the base of the appendix was then held with a grasper, and the appendix was moved away from the cecum. This was carefully immobilized; however, the tissues were indurated, hard, and there was about 3-4 mL of pus which was evacuated. The appendix was then gradually mobilized on its proximal half, although distal half could not be from the ascending colon, and it was firmly adherent. Any further separation resulted in uncontrolled bleeding and possible perforation of the ascending colon. It was, therefore, decided to convert this to an open appendectomy. In the right lower quadrant of the abdomen, a McBurney incision, was made through the McBurney point. the incision was deepened to incise the skin, subcutaneous tissue, and the Jovi fascia. The external oblique aponeurosis was incised along the direction of the fibers. The internal oblique and transversus abdominis muscle was then and retracted. The peritoneum was then opened. After retraction, the cecum was identified. This was followed posteriorly along the ascending colon where the appendiceal stump was identified. This was then carefully from the ascending colon, clipping the vessels from the mesoappendix between hemoclips. The tip of the appendix was then found to be very distended and round, measuring about 2 cm in diameter. This was completely removed. A sponge that was left laparoscopically, was then removed from the abdomen cavity, through the right lower quadrant wound. The right lower quadrant was then thoroughly irrigated with normal saline. All fluid was evacuated. Swab was sent for culture and antibiotic sensitivity examination. The right lower quadrant wound was then closed in layers approximating the internal oblique and transverse abdominis muscle with interrupted 2-0 Vicryl sutures, external oblique aponeurosis also with interrupted 2-0 Vicryl sutures. The Jovi's fascia was approximated with buried interrupted 2-0 Vicryl sutures. The skin and subcutaneous was approximated with interrupted buried subcuticular sutures. The laparoscope was then again reintroduced through the umbilical port, and abdominal cavity was thoroughly irrigated with normal saline. All fluid was evacuated. The instruments were then withdrawn under direct vision. The linea alba in midline was approximated with interrupted [id number] 2-0 Vicryl sutures. The skin was approximated with buried interrupted 4-0 Monocryl sutures. Then 0.5% Marcaine was injected into the wound. Dermabond was applied across all of the skin edges. Estimated blood loss was 25 mL. The patient tolerated the procedure well, was extubated and sent to the recovery room in satisfactory and stable condition. The patient was continued on antibiotics and will be n.p.o. for tonight. Reggie [id number]
[2016-10-28] MEDS: PIPERACILLIN/TAZOB 3.375 GM 50 ML IVPB SCH (17:39)
--- NOTE | 2016-10-28 19:17 | EKG ---
Test Reason : Blood Pressure : / mmHG Vent. Rate : 085 BPM Atrial Rate : 085 BPM P-R Int : 152 ms QRS Dur : 092 ms QT Int : 364 ms P-R-T Axes : 045 047 025 degrees QTc Int : 433 ms NORMAL SINUS RHYTHM POSSIBLE LEFT ATRIAL ENLARGEMENT BORDERLINE ECG NO PREVIOUS ECGS AVAILABLE Confirmed by ROSENDO URRUTIA, LEONARDA ([id number]) on 10/28/2016 7:17:29 PM Referred By: Confirmed By:LEONARDA ROBBINS MD
[2016-10-29] MEDS: PIPERACILLIN/TAZOB 3.375 GM 50 ML IVPB SCH ×3 (03:06→18:14)
[2016-10-29] MEDS: LACTATED RINGERS SOLUTION 1,000 ML IV SCH (06:33)
--- NOTE | 2016-10-29 07:46 | PN ---
Progress Note, Physician - Current Medication List Current Medications: Active Medications Dexamethasone Sodium Phosphate (Decadron Injection -) 4 mg IVPUSH ONCE PRN PRN Reason: NAUSEA AND/OR VOMITING Hydromorphone HCl (Dilaudid Deicer Element Winder Machine -) 10 mg SUGAR CONTROLLER SUGAR CONTROLLER CARMELO PRN Reason: Protocol Stop: 11/04/16 13:12 Last Admin: 10/28/16 17:32 Dose: Not Given Lactated Ringer's (Lactated Ringers Solution) 1,000 mls @ 125 mls/hr IV ASDIR CARMELO Last Admin: 10/29/16 06:33 Dose: 125 mls/hr Piperacillin Sod/Tazobactam Sod (Zosyn 3.375gm Ivpb (Pre-Docked)) 50 mls @ 100 mls/hr IVPB Q8H-IV CARMELO PRN Reason: Protocol Last Admin: 10/29/16 03:06 Dose: 100 mls/hr - Objective Vital Signs: Vital Signs Temperature 98 F 10/28/16 22:40 Pulse Rate 71 10/28/16 22:40 Respiratory Rate 18 10/28/16 22:40 Blood Pressure 120/71 10/28/16 22:40 O2 Sat by Pulse Oximetry (%) 100 10/28/16 21:00 Labs: CBC, BMP 10/28/16 07:45 10/28/16 07:45 INR, PTT INR 1.43 (0.82-1.09) H 10/28/16 07:45 Problem List - Problems (1) Acute appendicitis with appendiceal abscess Code(s): K35.3 - ACUTE APPENDICITIS WITH LOCALIZED PERITONITIS Assessment/Plan Surgery:\ S/P Appendectomy, perforated appendicitis. Patient is afebrile, WBC is normal. Gram stain , Many WBCs seen , no organism. Will resume oral feeding with liquids, out of bed , DVT prophylaxis. Continue antibiotics. Ambulate.
[2016-10-29 08:58] LABS: BASOPHIL 0.2 % (0-2.0); MCHC 33.7 g/dl (32.0-35.9); MEAN CELL VOLUME 89.1 fl (80-96); MEAN PLT VOLUME 9.4 fl (7.5-11.1); NEUTROPHILS 86.5 % (42.8-82.8); PLATELET COUNT 280 K/MM3 (134-434); RDW 12.6 % (11.9-15.9); WHITE BLOOD COUNT 15.8 K/mm3 (4.0-10.0)
[2016-10-29 09:03] LABS: ANION GAP 10 (8-16); BILIRUBIN,TOTAL 0.4 mg/dL (0.2-1.0); CALCIUM 8.8 mg/dL (8.5-10.1); CO2 27 mmol/L (21-32); COCKROFT - GAULT 109.41; CREATININE 0.9 mg/dL (0.7-1.3); GLUCOSE,RANDOM 105 mg/dL (74-106); SGOT/AST 37 U/L (15-37); SGPT/ALT 166 U/L (12-78); TOT PROT 6.5 g/dl (6.4-8.2)
[2016-10-29] MEDS: HEPARIN NA (PORCINE) 5,000 UNITS/ML 1ML VIAL SQ SCH ×2 (09:03→21:59)
[2016-10-29 09:04] LABS: ALK PHOS 98 U/L (45-117)
--- NOTE | 2016-10-29 11:17 | PN ---
Physical Exam: SUBJECTIVE: Patient stated he had bowel movement, urinating without pain, no fever/chills/n/ v/chest pain/shortness of breath. Pain from surgical site is under control. Tolerating liquid diet. Last WHEEL TRUING MACHINE TENDER use was yesterday 4pm. OBJECTIVE: Vital Signs Period Temp Pulse Resp BP Sys/Childs Pulse Ox Last 24 Hr 98 F-98.7 F 67-96 16-18 111-141/61-88 98-100 GENERAL: AAO x 3, in no acute distress. EYES: sclera anicteric, conjunctiva clear. No ptosis. ENT: oropharynx clear without exudates, moist mucous membranes.. LUNGS: CTAB HEART: RRR, S1, S2 without murmur, rub or gallop. ABDOMEN: Soft, mildly tender diffusely, nondistended, normoactive bowel sounds, 3 laproscopic surgical scars and open appendectomy scar no bleeding, drainage, crepitus, or erythema. EXTREMITIES: 2+ pulses, no edema. CBCD WBC 15.8 K/mm3 (4.0-10.0) H D 10/29/16 08:35 RBC 4.18 M/mm3 (4.00-5.60) 10/29/16 08:35 Hgb 12.6 GM/dL (11.7-16.9) D 10/29/16 08:35 Hct 37.3 % (35.4-49) 10/29/16 08:35 MCV 89.1 fl (80-96) 10/29/16 08:35 MCHC 33.7 g/dl (32.0-35.9) 10/29/16 08:35 RDW 12.6 % (11.9-15.9) 10/29/16 08:35 Plt Count 280 K/MM3 (134-434) 10/29/16 08:35 MPV 9.4 fl (7.5-11.1) 10/29/16 08:35 CMP Sodium 141 mmol/L (136-145) 10/29/16 08:35 Potassium 4.1 mmol/L (3.5-5.1) 10/29/16 08:35 Chloride 104 mmol/L (98-107) 10/29/16 08:35 Carbon Dioxide 27 mmol/L (21-32) 10/29/16 08:35 Anion Gap 10 (8-16) 10/29/16 08:35 BUN 11 mg/dL (7-18) D 10/29/16 08:35 Creatinine 0.9 mg/dL (0.7-1.3) 10/29/16 08:35 Creat Clearance w eGFR > 60 (>60) 10/29/16 08:35 Calcium 8.8 mg/dL (8.5-10.1) 10/29/16 08:35 Total Bilirubin 0.4 mg/dL (0.2-1.0) D 10/29/16 08:35 AST 37 U/L (15-37) D 10/29/16 08:35 ALT 166 U/L (12-78) H D 10/29/16 08:35 Alkaline Phosphatase 98 U/L (45-117) D 10/29/16 08:35 Total Protein 6.5 g/dl (6.4-8.2) 10/29/16 08:35 Albumin 3.0 g/dl (3.4-5.0) L 10/29/16 08:35 Intake & Output 10/26/16 10/27/16 10/28/16 10/29/16 23:59 23:59 23:59 23:59 Intake Total 3459 1050 Output Total 180 600 Balance 3279 450 Weight 68.039 kg 69.513 kg Active Medications Generic Name Dose Route Start Last Admin Trade Name Freq PRN Reason Stop Dose Admin Dexamethasone Sodium Phosphate 4 mg 10/28/16 14:22 Decadron Injection - IVPUSH ONCE PRN NAUSEA AND/OR VOMITING Heparin Sodium (Porcine) 5,000 unit 10/29/16 10:00 10/29/16 09:03 Heparin - SQ 5,000 unit BID CARMELO Administration Hydromorphone HCl 10 mg 10/28/16 14:22 10/28/16 17:32 Dilaudid Senior Net Software Developer - WHEEL TRUING MACHINE TENDER 11/04/16 13:12 Not Given WHEEL TRUING MACHINE TENDER [facility] Protocol Lactated Ringer's 1,000 mls @ 125 mls/hr 10/28/16 14:22 10/29/16 06:33 Lactated Ringers Solution IV 125 mls/hr ASDIR CARMELO Administration Piperacillin Sod/Tazobactam Sod 50 mls @ 100 mls/hr 10/28/16 18:00 10/29/16 09: 03 Zosyn 3.375gm Ivpb (Pre-Docked) IVPB 100 mls/hr Q8H-IV CARMELO Administration Protocol Microbiology 10/28/16 12:45 Gram Stain - Final Abscess 10/28/16 12:45 Gram Stain - Final Tissue-Other ASSESSMENT/PLAN: 40 yo M admitted to the floor for RLQ pain and was found to have acute appendicitis with abscess. Now s/p open appendectomy. Acute appendicitis, abscess with perforation - Resolved, post-op day 1 - Vital stable, leukocytosis but afrebile - Cont. LR @ 125cc/hr - Dilaudid WHEEL TRUING MACHINE TENDER for pain control - Decadron for n/v - Cont. zosyn day 2 - f/u culture to determine abx Transaminitis, transient - Resolved FEN - LR - Normal lytes, Cont. to monitor - Liquid diet, advance as tolerated Prophylaxis - DVT: heparin SQ - GI: not indicated Disposition - Discharge if cleared by surgery Code status - Full code Visit type - Emergency Visit Emergency Visit: No - New Patient This patient is new to me today: No - Critical Care Critical Care patient: No
--- NOTE | 2016-10-29 11:40 | PN ---
Teaching Attending Note Name of Resident: Elmer Mooney ATTENDING PHYSICIAN STATEMENT I saw and evaluated the patient. I reviewed the resident's note and discussed the case with the resident. I agree with the resident's findings and plan as documented. SUBJECTIVE:currently asymptomatic. mild tenderness at surgical site on movement. tolerating liquid diet. passing flatus. denies CP, SOB,fever, chills, N/V/C/D. no BM yet OBJECTIVE: Last Vital Signs Temp Pulse Resp BP Pulse Ox 98.7 F 67 18 115/88 100 10/29/16 07:00 10/29/16 07:00 10/29/16 07:00 10/29/16 07:00 10/28/16 21:00 General NAD Abdomen soft mildly distended. surgical incisions with some dried blood. close approximation no oozing or drainage from sites ASSESSMENT AND PLAN: 40yo M with no PMH presented to the ER with RLQ pain and found to have acute appendicitis with abscess 1. Acute Appendicitis with abscess- s/p open appendectomy 10/28. tolerating liquid diet. will slowly advance diet as tolerated. on Zosyn day 2. will wait for abscess cx to result. ID and surgery on board. will d/c IVF. Pain and nausea control. 2. Transaminitis-hx of transaminitis. s/p liver bx which showed fatty infiltration. now normalized. will need to f/u with PMD. 3. Microscopic hematuria- can be due to dehydration or infection. u/s shows no acute pathology in the kidnyes. repeat UA 4. DVT ppx- hep sq 5. d/c planning tomorrow
[2016-10-29] MEDS ORDERED: oxyCODONE HCL 5 MG TABLET PO PRN (11:47)
--- NOTE | 2016-10-29 12:33 | PN ---
Progress Note, Physician History of Present Illness: doing much better no issues - Current Medication List Current Medications: Active Medications Dexamethasone Sodium Phosphate (Decadron Injection -) 4 mg IVPUSH ONCE PRN PRN Reason: NAUSEA AND/OR VOMITING Heparin Sodium (Porcine) (Heparin -) 5,000 unit SQ BID CARMELO Last Admin: 10/29/16 09:03 Dose: 5,000 unit Piperacillin Sod/Tazobactam Sod (Zosyn 3.375gm Ivpb (Pre-Docked)) 50 mls @ 100 mls/hr IVPB Q8H-IV CARMELO PRN Reason: Protocol Last Admin: 10/29/16 09:03 Dose: 100 mls/hr Oxycodone HCl (Roxicodone -) 5 mg PO Q4H PRN PRN Reason: PAIN - Objective Vital Signs: Vital Signs Temperature 98.7 F 10/29/16 07:00 Pulse Rate 67 10/29/16 07:00 Respiratory Rate 18 10/29/16 07:00 Blood Pressure 115/88 10/29/16 07:00 O2 Sat by Pulse Oximetry (%) 100 10/28/16 21:00 Constitutional: Yes: No Distress, Calm Cardiovascular: Yes: Regular Rate and Rhythm Gastrointestinal: Yes: Soft, Hypoactive Bowel Sounds Musculoskeletal: Yes: WNL Extremities: Yes: WNL Wound/Incision: Yes: Clean/Dry Neurological: Yes: Alert, Oriented Psychiatric: Yes: Alert Labs: CBC, BMP 10/29/16 08:35 10/29/16 08:35 INR, PTT INR 1.43 (0.82-1.09) H 10/28/16 07:45 Assessment/Plan ac appendicits with abscess and perforation abd pain plan will start patient on abx rest as per primary team/surgery
--- NOTE | 2016-10-29 13:04 | PN ---
Progress Note (short form) - Note Progress Note: POD #1 - s/p open appendectomy under general anesthesia. Pt.doing well, sitting up comfortably in chair. No complaints. Good pain control - little use of FLIGHT OPERATIONS DISPATCH CLERK so it was discontinued earlier by hospitalist. No apparent anesthetic complications noted. Continue current care.
[2016-10-29 18:39] LABS: URINE APPEARANCE CLEAR; URINE BILIRUBIN NEGATIVE (NEGATIVE); URINE BLOOD NEGATIVE (NEGATIVE); URINE COLOR STRAW; URINE GLUCOSE (UA) NEGATIVE (NEGATIVE); URINE KETONE NEGATIVE (NEGATIVE); URINE LEUK ESTERASE NEGATIVE (NEGATIVE); URINE NITRITE NEGATIVE (NEGATIVE); URINE PROTEIN NEGATIVE (NEGATIVE); URINE UROBILINOGEN NEGATIVE E.U./dl (0.2-1.0)
[2016-10-30] MEDS: PIPERACILLIN/TAZOB 3.375 GM 50 ML IVPB SCH ×3 (03:01→17:06)
[2016-10-30 08:06] LABS: BASOPHIL 0.1 % (0-2.0); EOSINOPHIL 0.4 % (0-4.5); MCHC 33.5 g/dl (32.0-35.9); MEAN CELL VOLUME 89.5 fl (80-96); NEUTROPHILS 72.3 % (42.8-82.8); PLATELET COUNT 283 K/MM3 (134-434); RDW 12.8 % (11.9-15.9); WHITE BLOOD COUNT 8.8 K/mm3 (4.0-10.0)
[2016-10-30 08:26] LABS: ALBUMIN 2.9 g/dl (3.4-5.0); ANION GAP 7 (8-16); CALCIUM 8.4 mg/dL (8.5-10.1); CO2 30 mmol/L (21-32); GLUCOSE,RANDOM 85 mg/dL (74-106)
[2016-10-30 08:31] LABS: ALK PHOS 79 U/L (45-117); BILIRUBIN,TOTAL 0.5 mg/dL (0.2-1.0); COCKROFT - GAULT 109.41; CREATININE 0.9 mg/dL (0.7-1.3); SGOT/AST 25 U/L (15-37); SGPT/ALT 115 U/L (12-78); TOT PROT 5.9 g/dl (6.4-8.2)
[2016-10-30] MEDS: HEPARIN NA (PORCINE) 5,000 UNITS/ML 1ML VIAL SQ SCH ×2 (10:39→21:11)
--- NOTE | 2016-10-30 12:54 | PN ---
Progress Note, Physician - Current Medication List Current Medications: Active Medications Dexamethasone Sodium Phosphate (Decadron Injection -) 4 mg IVPUSH ONCE PRN PRN Reason: NAUSEA AND/OR VOMITING Heparin Sodium (Porcine) (Heparin -) 5,000 unit SQ BID CARMELO Last Admin: 10/30/16 10:39 Dose: 5,000 unit Piperacillin Sod/Tazobactam Sod (Zosyn 3.375gm Ivpb (Pre-Docked)) 50 mls @ 100 mls/hr IVPB Q8H-IV CARMELO PRN Reason: Protocol Last Admin: 10/30/16 10:33 Dose: 100 mls/hr Oxycodone HCl (Roxicodone -) 5 mg PO Q4H PRN PRN Reason: PAIN Last Admin: 10/29/16 16:03 Dose: 5 mg - Objective Vital Signs: Vital Signs Temperature 99.9 F H 10/30/16 09:28 Pulse Rate 103 H 10/30/16 09:28 Respiratory Rate 18 10/30/16 09:28 Blood Pressure 126/86 10/30/16 09:28 O2 Sat by Pulse Oximetry (%) 94 L 10/30/16 10:00 Labs: CBC, BMP 10/30/16 07:08 10/30/16 07:08 INR, PTT INR 1.43 (0.82-1.09) H 10/28/16 07:45 Problem List - Problems (1) Acute appendicitis with appendiceal abscess Code(s): K35.3 - ACUTE APPENDICITIS WITH LOCALIZED PERITONITIS Assessment/Plan Surgery: Patient is out of bed ambulating. Tolerating diet. Afebrile, Wound is clean. WBC is normal today. Cultures are negative as of today. Continue antibiotics. Possible discharge in am, with PO antibiotics.
--- NOTE | 2016-10-30 13:04 | PN ---
Teaching Attending Note Name of Resident: Elmer Mooney ATTENDING PHYSICIAN STATEMENT I saw and evaluated the patient. I reviewed the resident's note and discussed the case with the resident. I agree with the resident's findings and plan as documented. SUBJECTIVE:currently asymptomatic. tolerating regular diet. passing flatus but no BM. denies CP, SOB,fever, chills, N/V OBJECTIVE: Last Vital Signs Temp Pulse Resp BP Pulse Ox 99.9 F H 103 H 18 126/86 94 L 10/30/16 09:28 10/30/16 09:28 10/30/16 09:28 10/30/16 09:28 10/30/16 10:00 General NAD Abdomen soft mildly distended. surgical incisions intact. no oozing or drainage from sites Microbiology 10/28/16 12:45 Gram Stain - Final Tissue-Other Tissue Culture - Final NO GROWTH OF AEROBIC ORGANISMS AFTER 48 HOURS INCUBATION Anaerobic Culture - Final NO ANAEROBES WERE ISOLATED 10/28/16 12:45 Gram Stain - Final Abscess Wound Culture - Final NO AEROBIC OR ANAEROBIC GROWTH OBTAINED. ASSESSMENT AND PLAN: 40yo M with no PMH presented to the ER with RLQ pain and found to have acute appendicitis with abscess 1. Acute Appendicitis with abscess- s/p open appendectomy 10/28. tolerating regular diet. on Zosyn day 3. cx negative. will d/w ID about abx course and duration. ID and surgery on board. Pain and nausea control. 2. Transaminitis-hx of transaminitis. s/p liver bx which showed fatty infiltration. now normalized. will need to f/u with PMD. 3. Microscopic hematuria- can be due to dehydration or infection. u/s shows no acute pathology in the kidnyes. repeat UA negative for hematuria 4. DVT ppx- hep sq 5. d/c planning tomorrow. Surgery requesting 72H of IV abx due to difficulty of procedure and that it was converted to open. w
--- NOTE | 2016-10-30 16:17 | PN ---
Physical Exam: SUBJECTIVE: Patient stated he had a large bowel movement and he continues to feel fine. He' s ambulating in the hallway. Pain from surgical site is under control. Tolerating diet. OBJECTIVE: Vital Signs Period Temp Pulse Resp BP Sys/Childs Pulse Ox Last 24 Hr 98.2 F-99.9 F 74-103 18-18 112-146/66-86 94-99 GENERAL: AAO x 3, in no acute distress. EYES: sclera anicteric, conjunctiva clear. No ptosis. ENT: oropharynx clear without exudates, moist mucous membranes.. LUNGS: CTAB HEART: RRR, S1, S2 without murmur, rub or gallop. ABDOMEN: Soft, mildly tender diffusely, nondistended, normoactive bowel sounds, 3 laproscopic surgical scars and open appendectomy scar no bleeding, drainage, crepitus, or erythema. EXTREMITIES: 2+ pulses, no edema. CBCD WBC 8.8 K/mm3 (4.0-10.0) D 10/30/16 07:08 RBC 3.96 M/mm3 (4.00-5.60) L 10/30/16 07:08 Hgb 11.9 GM/dL (11.7-16.9) 10/30/16 07:08 Hct 35.4 % (35.4-49) 10/30/16 07:08 MCV 89.5 fl (80-96) 10/30/16 07:08 MCHC 33.5 g/dl (32.0-35.9) 10/30/16 07:08 RDW 12.8 % (11.9-15.9) 10/30/16 07:08 Plt Count 283 K/MM3 (134-434) 10/30/16 07:08 MPV 9.0 fl (7.5-11.1) 10/30/16 07:08 CMP Sodium 142 mmol/L (136-145) 10/30/16 07:08 Potassium 4.0 mmol/L (3.5-5.1) 10/30/16 07:08 Chloride 105 mmol/L (98-107) 10/30/16 07:08 Carbon Dioxide 30 mmol/L (21-32) 10/30/16 07:08 Anion Gap 7 (8-16) L 10/30/16 07:08 BUN 10 mg/dL (7-18) 10/30/16 07:08 Creatinine 0.9 mg/dL (0.7-1.3) 10/30/16 07:08 Creat Clearance w eGFR > 60 (>60) 10/30/16 07:08 Calcium 8.4 mg/dL (8.5-10.1) L 10/30/16 07:08 Total Bilirubin 0.5 mg/dL (0.2-1.0) D 10/30/16 07:08 AST 25 U/L (15-37) D 10/30/16 07:08 ALT 115 U/L (12-78) H D 10/30/16 07:08 Alkaline Phosphatase 79 U/L (45-117) 10/30/16 07:08 Total Protein 5.9 g/dl (6.4-8.2) L 10/30/16 07:08 Albumin 2.9 g/dl (3.4-5.0) L 10/30/16 07:08 Intake & Output 10/27/16 10/28/16 10/29/16 10/30/16 23:59 23:59 23:59 23:59 Intake Total 3459 3225 100 Output Total 180 600 Balance 3279 2625 100 Weight 68.039 kg 69.513 kg Active Medications Generic Name Dose Route Start Last Admin Trade Name Freq PRN Reason Stop Dose Admin Dexamethasone Sodium Phosphate 4 mg 10/28/16 14:22 Decadron Injection - IVPUSH ONCE PRN NAUSEA AND/OR VOMITING Heparin Sodium (Porcine) 5,000 unit 10/29/16 10:00 10/30/16 10:39 Heparin - SQ 5,000 unit BID CARMELO Administration Piperacillin Sod/Tazobactam Sod 50 mls @ 100 mls/hr 10/28/16 18:00 10/30/16 10: 33 Zosyn 3.375gm Ivpb (Pre-Docked) IVPB 100 mls/hr Q8H-IV CARMELO Administration Protocol Oxycodone HCl 5 mg 10/29/16 11:47 10/29/16 16:03 Roxicodone - PO 5 mg Q4H PRN Administration PAIN Microbiology 10/28/16 12:45 Gram Stain - Final Tissue-Other Tissue Culture - Final NO GROWTH OF AEROBIC ORGANISMS AFTER 48 HOURS INCUBATION Anaerobic Culture - Final NO ANAEROBES WERE ISOLATED 06/03/17 12:45 Gram Stain - Final Abscess Wound Culture - Final NO AEROBIC OR ANAEROBIC GROWTH OBTAINED. ASSESSMENT/PLAN: 40 yo M admitted to the floor for RLQ pain and was found to have acute appendicitis with abscess. Now s/p open appendectomy. Acute appendicitis, abscess with perforation - Resolved, post-op day 2 - Vital stable, normal WBC, afrebile - Decadron for n/v - Cont. zosyn day 3 - Cultures negative - PO augmentin 875mg BID x 5 more days after discharge Transaminitis, transient - Resolved FEN - IVF d/c - Normal lytes, Cont. to monitor - Cholesterol controlled diet Prophylaxis - DVT: heparin SQ - GI: not indicated Disposition - Discharge tomorrow Code status - Full code Visit type - Emergency Visit Emergency Visit: No - New Patient This patient is new to me today: No - Critical Care Critical Care patient: No
[2016-10-30] MEDS ORDERED: PANTOPRAZOLE SODIUM 40 MG in SODIUM CHLORIDE 100 ML IVPB ONE (18:47)
[2016-10-30] MEDS ORDERED: PANTOPRAZOLE 40 MG TABLET (FP) PO ONE (18:51)
[2016-10-31] MEDS: PIPERACILLIN/TAZOB 3.375 GM 50 ML IVPB SCH ×2 (02:45→09:43)
[2016-10-31] MEDS: HEPARIN NA (PORCINE) 5,000 UNITS/ML 1ML VIAL SQ SCH (09:43)
[2016-10-31 09:51] VITALS: BP 112/70; PULSE 74; TEMP 98.7
--- NOTE | 2016-10-31 10:50 | PN ---
Teaching Attending Note Name of Resident: Elmer Mooney ATTENDING PHYSICIAN STATEMENT I saw and evaluated the patient. I reviewed the resident's note and discussed the case with the resident. I agree with the resident's findings and plan as documented. SUBJECTIVE: No complaints. Ambulating. Tolerating diet. OBJECTIVE: Vital Signs Period Temp Pulse Resp BP Sys/Childs Pulse Ox Last 24 Hr 98.4 F-99.7 F 63-92 18-18 99-128/63-77 96-96 HEART: S1 S2, RRR LUNGS: Clear ABDOMEN: Soft, non-tender, non-distended, normal BS, surgical incisions clean EXTREMITIES: No edema ASSESSMENT AND PLAN: This is a 40 year old man with no significant history who presented to the ER with RLQ abdominal pain. 1. Acute appendicitis with abscess - s/p open appendectomy 10/28 - On Zosyn day 4 - Discharge today on Augmentin 2. Hepatic transaminitis - Improved 3. Fatty liver
--- NOTE | 2016-10-31 11:00 | PN ---
Progress Note, Physician - Current Medication List Current Medications: Active Medications Dexamethasone Sodium Phosphate (Decadron Injection -) 4 mg IVPUSH ONCE PRN PRN Reason: NAUSEA AND/OR VOMITING Heparin Sodium (Porcine) (Heparin -) 5,000 unit SQ BID CARMELO Last Admin: 10/31/16 09:43 Dose: 5,000 unit Piperacillin Sod/Tazobactam Sod (Zosyn 3.375gm Ivpb (Pre-Docked)) 50 mls @ 100 mls/hr IVPB Q8H-IV CARMELO PRN Reason: Protocol Last Admin: 10/31/16 09:43 Dose: 100 mls/hr Oxycodone HCl (Roxicodone -) 5 mg PO Q4H PRN PRN Reason: PAIN Last Admin: 10/29/16 16:03 Dose: 5 mg - Objective Vital Signs: Vital Signs Temperature 98.7 F 10/31/16 09:50 Pulse Rate 74 10/31/16 09:50 Respiratory Rate 18 10/31/16 09:50 Blood Pressure 112/70 10/31/16 09:50 O2 Sat by Pulse Oximetry (%) 96 10/31/16 09:51 Labs: CBC, BMP 10/30/16 07:08 10/30/16 07:08 INR, PTT INR 1.43 (0.82-1.09) H 10/28/16 07:45 Problem List - Problems (1) Acute appendicitis with appendiceal abscess Code(s): K35.3 - ACUTE APPENDICITIS WITH LOCALIZED PERITONITIS Assessment/Plan Surgery folow up: Patient is afebrile. Tolerating diet. Wound is clean , no sign of infection. Abdomen is soft , not tender, Discharge home with oral antibiotics.
--- NOTE | 2016-10-31 11:36 | PN ---
Progress Note, Physician History of Present Illness: patient doing well no new issues no complaints - Current Medication List Current Medications: Active Medications Dexamethasone Sodium Phosphate (Decadron Injection -) 4 mg IVPUSH ONCE PRN PRN Reason: NAUSEA AND/OR VOMITING Heparin Sodium (Porcine) (Heparin -) 5,000 unit SQ BID CARMELO Last Admin: 10/31/16 09:43 Dose: 5,000 unit Piperacillin Sod/Tazobactam Sod (Zosyn 3.375gm Ivpb (Pre-Docked)) 50 mls @ 100 mls/hr IVPB Q8H-IV CARMELO PRN Reason: Protocol Last Admin: 10/31/16 09:43 Dose: 100 mls/hr Oxycodone HCl (Roxicodone -) 5 mg PO Q4H PRN PRN Reason: PAIN Last Admin: 10/29/16 16:03 Dose: 5 mg - Objective Vital Signs: Vital Signs Temperature 98.7 F 10/31/16 09:50 Pulse Rate 74 10/31/16 09:50 Respiratory Rate 18 10/31/16 09:50 Blood Pressure 112/70 10/31/16 09:50 O2 Sat by Pulse Oximetry (%) 96 10/31/16 09:51 Constitutional: Yes: No Distress, Calm Cardiovascular: Yes: Regular Rate and Rhythm Respiratory: Yes: Regular, CTA Bilaterally Gastrointestinal: Yes: Normal Bowel Sounds, Soft Musculoskeletal: Yes: WNL Extremities: Yes: WNL Wound/Incision: Yes: Clean/Dry Neurological: Yes: Alert, Oriented Psychiatric: Yes: Alert, Oriented Labs: CBC, BMP 10/30/16 07:08 10/30/16 07:08 INR, PTT INR 1.43 (0.82-1.09) H 10/28/16 07:45 Assessment/Plan ac appendicits with abscess and perforation abd pain plan continue abx once patient ready to go home can switch to oral
--- NOTE | 2016-10-31 14:31 | PATH ---
Surgical Pathology Report Patient Name: PATRICIA MENDEZ Med. Rec. #: [id number] /Age/Gender: 1975 (Age: 40) / M Account: [id number] Location: [address] [place] [address] Taken: 10/29/2016 Received: 10/30/2016 Reported: 10/31/2016 Physicians: Derrek Hoffman M.D. Specimen(s) Received APPENDIX Clinical History Appendicitis Final Diagnosis APPENDIX, APPENDECTOMY: ACUTE APPENDICITIS AND PERIAPPENDICITIS. Electronically Signed Anselmo Lucero M.D. Gross Description Received in formalin labeled "appendix" are 2 portions of a ruptured vermiform appendix measuring 4.5 and 2.5 cm in length. The shorter portion displays a stapled margin of resection. The outer surface is lama-brown with adhesions and attached exudate. Sectioning reveals a pinpoint lumen. The wall of the appendix averages 0.1 cm in thickness. [employer] sections are submitted in one cassette. 10/30/201610/30/2016
--- NOTE | 2016-10-31 14:50 | DS ---
Physical Exam: SUBJECTIVE: He reported last bowel movement was last night and having lot of gas. Ambulating. No fever, chills, chest pain, shortness of breath or abd pain. OBJECTIVE: Vital Signs Period Temp Pulse Resp BP Sys/Childs Pulse Ox Last 24 Hr 98.4 F-99.7 F 63-88 18-18 99-115/63-73 96-96 PHYSICAL EXAM GENERAL: AAO x 3, in no acute distress. EYES: sclera anicteric, conjunctiva clear. No ptosis. ENT: oropharynx clear without exudates, moist mucous membranes.. LUNGS: CTAB HEART: RRR, S1, S2 without murmur, rub or gallop. ABDOMEN: Soft, mildly tender diffusely, nondistended, normoactive bowel sounds, 3 laproscopic surgical scars and open appendectomy scar no bleeding, drainage, crepitus, or erythema. EXTREMITIES: 2+ pulses, no edema. LABS HOSPITAL COURSE: Date of Admission:10/27/16 40 yo M admitted to the floor for RLQ pain and was found to have acute appendicitis with abscess. He underwent open appendectomy. Tissue and abscess cultures have not grown any organisms. He's Date of Discharge: 10/31/16 Minutes to complete discharge: 35 Discharge Summary Reason For Visit: ABSCESS OF APPENDIX Condition: Stable - Instructions Diet, Activity, Other Instructions: Instruction for continuing care: You were admitted to the hospital for acute appendicitis with abscess. The surgeon removed the appendix and abscess and you received antibiotics after the surgery. You are now in stable condition to go home. You need to follow up in with Dr. Hoffman in his office on 11/02/2016 and continue to take oral antibiotics called augmentin 875mg BID for another 5 days. Take motrin 600mg for pain as needed. You may continue to eat regular diet , may shower daily. You must not life anything heavy in the next [address] Hoffman's office at [phone], to be seen on Sunday at 4.15 pm. Referrals: Doretha Tillman MD [Primary Care Provider] - Ana Hoffman MD [Staff Physician] - Disposition: HOME - Home Medications Comprehensive Discharge Medication List: Ambulatory Orders Amox-Tr/K Cl [Augmentin - 875Mg Tablet] 1 tab PO BID #10 tablet 10/31/16 Ibuprofen [Motrin -] 600 mg PO TID #21 tablet 10/31/16 This patient is new to me today: No Emergency Visit: No Critical Care patient: No - Discharge Referral Referred to [facility] No
[2016-11-01 00:07] LABS: HEP B SURFACE AB Reactive (.)
== END 2016-10-31 11:44 | disposition home or self-care (01) | DRG 340 ==
LOC: JER 16:28 → JERBED 22:04 → J5S 23:53
PROVIDERS: ADMIT Internal Medicine; ATTEND Internal Medicine
PROC: 0DJD4ZZ Inspection of Lower Intestinal Tract, Percutaneous Endoscopic Approach (ICD-10-PCS; 2016-10-28)
PROC: 0DTJ0ZZ Resection of Appendix, Open Approach (ICD-10-PCS; principal; 2016-10-28 10:00)
DX: K35.3 Acute appendicitis with localized peritonitis (principal); R74.0 Nonspecific elevation of levels of transaminase and lactic acid dehydrogenase [LDH]; R31.29 Other microscopic hematuria; K76.0 Fatty (change of) liver, not elsewhere classified
CPT/HCPCS: 36415; 74000-TC; 74177-TC; 76705-TC; 80053; 81003; 81015; 85025; 85610; 86704; 86706; 86708; 86803; 86850; 86900; 86901; 87070; 87075; 87205; 87340; 88304-TC; 93005; 93010; 94760; 99283-25; J1644

== ENCOUNTER 2023-05-10 04:36 | Day surgery (SDC) | payer BC, OTHER ==
[2023-05-08 16:17] VITALS: BMI 27.7
[2023-05-10 10:03] VITALS: TEMP 98.2
[2023-05-10 10:05] VITALS: BP 118/80; PULSE 60; RESP 20
== END 2023-05-10 10:15 | disposition home or self-care (01) ==
LOC: JASU-ENDO 04:36
PROVIDERS: ATTEND Internal Medicine Gastroenterology
PROC: 0DJD8ZZ Inspection of Lower Intestinal Tract, Via Natural or Artificial Opening Endoscopic (ICD-10-PCS; principal; 2023-05-10 09:00)
DX: Z12.11 Encounter for screening for malignant neoplasm of colon (principal); Z80.0 Family history of malignant neoplasm of digestive organs